=== PATIENT | male | born 1980 | race Two or more races ===

== ENCOUNTER → 2017-12-23 | Day surgery (SDC) | payer MEDICARE, MEDICAID ==
[2017-12-20 10:55] LABS: Basophils # (auto) 0 uL; Basophils % (auto) 0.4 % (0.0-2.0); Eosinophils # (auto) 0.1 uL; Eosinophils % (auto) 1.5 % (0.0-7.0); Hematocrit 42.1 % (41.0-53.0); Hemoglobin 14.3 g/dL (13.5-17.5); Lymphocytes % (auto) 34.6 % (10.0-50.0); Mean Corpuscular Hemoglobin 28.5 pg (28.0-32.0); Mean Corpuscular Hgb Conc. 33.9 g/dL (32.0-36.0); Mean Corpuscular Volume 84.1 fL (80.0-100.0); Monocytes # (auto) 0.7 uL; Monocytes % (auto) 8.1 % (0.0-12.0); Neutrophils # (auto) 4.8 uL; Neutrophils % (auto) 55.4 % (37.0-80.0); Platelet Count (auto) 378 10^3/uL (140-450); Red Blood Cells 5.01 10^6/uL (4.5-5.90); Red Cell Distribution Width 14.5 % (11.8-14.3); White Blood Cell 8.6 10^3/uL (4.4-10.8)
[2017-12-20 10:56] LABS: Urine Bacteria NONE SEEN /hpf (None Seen); Urine Blood Negative /uL (Negative); Urine Mucus FEW (None Seen); Urine Specific Gravity 1.024 (1.001-1.035); Urine WBC <1 /hpf (0 - 3)
[2017-12-20 11:06] LABS: INR 0.92 (0.9-1.15); Partial Thromboplastin Time 27.9 sec (23.78-33.04); Prothrombin Time 9.9 sec (9.27-12.13)
[2017-12-20 11:19] LABS: Albumin 3.9 g/dL (3.4-5.0); BUN/Creatinine Ratio 11.2; Bilirubin, Total 0.6 mg/dL (0.2-1.0); Calcium 8.5 mg/dL (8.5-10.1); Total Protein 7.4 g/dL (6.4-8.2)
[~2017-12-23] VITALS: Ht 175.3 cm; Wt 113.4 kg
[~2017-12-23] MED LIST: BUPIVACAINE 0.25% INJ 50ML VIAL ONE; BUPIVACAINE W/ EPINEPH 0.25% INJ 50ML MDV ONE; GLYCOPYRROLATE 0.2 MG/ML 1ML VIAL ONE; HYDROmorphone HCL 2 MG/ML VL IV PRN; KETOROLAC TROMETH 30 MG/ML 1ML VIAL ONE; LIDOCAINE 1% (LOCAL ANESTH.) PF 5ml SDV ONE; LIDOCAINE W/ EPINEPHRINE 1% 20ML VIAL ONE; MEPERIDINE HCL (25 MG/ML) 1ML VIAL IV PRN; MEPERIDINE HCL (25 MG/ML) 1ML VIAL ONE; METOCLOPRAMIDE HCL 5MG/ml INJ 2ml VIAL ONE; MIDAZOLAM HCL 1MG/1ML-2 ML VIAL ONE; NALOXONE HCL 0.4 MG/ML VIAL IV PRN; NEOSTIGMINE 1 MG/ML INJ (10mg/10ML VIAL) ONE; ONDANSETRON HCL 4 MG/2 ML VIAL IV ONE; PROPOFOL 10 MG/ML 20 ML IV ONE; ROCURONIUM 10MG/ML 10ML VIAL IV ONE; SUCCINYLCHOLINE CHLORIDE 20 MG/ML 10ML VIAL IV ONE; ceFAZolin 1GM/50ML 50 ML IV ONE; fentaNYL CITRATE 100 MCG/2 ML VL ONE
[2017-12-23] MEDS: HYDROmorphone HCL 2 MG/ML VL IV PRN ×4 (09:13→09:45)
[2017-12-23 10:31] VITALS: BP 138/79
== END | disposition home or self-care (01) ==
LOC: SUR 06:28
PROVIDERS: ATTEND Orthopaedic Surgery
DX: S52.021A Displaced fracture of olecranon process without intraarticular extension of right ulna, initial encounter for closed fracture (principal); T84.098A Other mechanical complication of other internal joint prosthesis, initial encounter; E66.9 Obesity, unspecified; F10.99 Alcohol use, unspecified with unspecified alcohol-induced disorder; K21.9 Gastro-esophageal reflux disease without esophagitis; I10 Essential (primary) hypertension; J45.909 Unspecified asthma, uncomplicated; G47.33 Obstructive sleep apnea (adult) (pediatric); Z68.37 Body mass index [BMI] 37.0-37.9, adult; Z68.36 Body mass index [BMI] 36.0-36.9, adult; Z87.891 Personal history of nicotine dependence; X58.XXXA Exposure to other specified factors, initial encounter; Y93.89 Activity, other specified; Y92.89 Other specified places as the place of occurrence of the external cause; Y99.8 Other external cause status; Y83.8 Other surgical procedures as the cause of abnormal reaction of the patient, or of later complication, without mention of misadventure at the time of the procedure
CPT/HCPCS: 20680; 24685; 36415; 71045; 80053; 81001; 85025; 85610; 85730; C1713; C1769; J0330; J0690; J1170; J1885; J2175; J2250; J2704; J2765; J3010; J3490

== ENCOUNTER 2020-02-23 16:10 | Emergency (ER) | payer MEDICARE, MEDICAID ==
[~2020-02-23] VITALS: Ht 175.3 cm; Wt 99.8 kg
[2020-02-23 16:32] VITALS: BP 140/83
== END 2020-02-23 19:51 | disposition left against medical advice (07) ==
LOC: ER 16:10
DX: M79.672 Pain in left foot (principal); M79.671 Pain in right foot; Z53.21 Procedure and treatment not carried out due to patient leaving prior to being seen by health care provider; Z59.0 Homelessness